=== PATIENT | male | born 2000 | race Caucasian/White ===

== ENCOUNTER → 2025-03-23 14:28 | Outpatient (REF) | payer BC, SELFPAY | LOC: HWRAD 14:28 | PROVIDERS: ATTENDING PHYSICIAN Family Medicine; FAMILY PHYSICIAN Student in an Organized Health Care Education/Training Program | DX: R22.9 Localized swelling, mass and lump, unspecified (principal); N50.812 Left testicular pain | CPT/HCPCS: 76705; 76870; 76882; 93976 ==